=== PATIENT | female | born 1945 ===

== ENCOUNTER 2020-10-13 05:49 | Day surgery (SDC) | payer OTHER ==
[~2020-10-13 05:49] MED LIST: LASIX20 MG PO; LOSARTAN POTASS50 MG PO; STIOLTO RESPIMAT4 GM IH; ZOCOR20 MG PO
== END 2020-10-13 09:50 | disposition home or self-care (01) ==
LOC: CIR.AMB 05:49
PROVIDERS: ATTEND Otolaryngology Otology & Neurotology
DX: C44.212 Basal cell carcinoma of skin of right ear and external auricular canal (principal); L57.8 Other skin changes due to chronic exposure to nonionizing radiation; Z20.822 Contact with and (suspected) exposure to COVID-19